=== PATIENT | male | born 1980 | race Caucasian/White ===

== ENCOUNTER 2017-08-14 19:49 | Emergency (ER) | payer OTHER ==
[2017-08-14] MEDS ORDERED: Acetaminophen TAB* 325 MG PO ONE (22:57)
[2017-08-14] MEDS ORDERED: Metoclopramide IV* 5 MG/ML 2 ML VIAL IV SLOW PU ONE (22:57)
[2017-08-14] MEDS: NS 0.9% 1000 ML* 2,000 ML IV ONE (23:06)
[2017-08-14 23:15] LABS: ABS Basophils 0.1 10^3/ul (0-0.2); ABS Eosinophils 0 10^3/ul (0-0.6); ABS Lymphocytes 0.4 10^3/ul (1.0-4.8); ABS Monocytes 0.4 10^3/ul (0-0.8); ABS Neutrophils 6.6 10^3/ul (1.5-7.7); ABS Nucleated RBC 0 10^3/ul; Eosinophil % 0.3 % (0-6); Hematocrit 45 % (42-52); Hemoglobin 15.9 g/dl (14.0-18.0); Lymphocyte % 5.2 % (25-47); Mean Corpuscular HGB Conc 35 g/dl (31-36); Mean Corpuscular Hemoglobin 31 pg (27-31); Mean Corpuscular Volume 88 fL (80-94); Mean Platelet Volume 7.6 um3 (7.4-10.4); Nucleated Red Blood Cells % 0.1; Platelet Count 246 10^3/ul (150-450); Red Blood Count 5.12 10^6/ul (4.0-5.4); Red Cell Distribution Width 14 % (10.5-15); White Blood Count 7.5 10^3/ul (3.5-10.8)
[2017-08-14 23:28] LABS: EGFR Non-African American 86.5 (>60)
[2017-08-15] MEDS: NS 0.9% 1000 ML* 2,000 ML IV ONE (00:14)
[2017-08-15 00:45] VITALS: BP 117/61
--- NOTE | 2017-08-15 01:04 | ED ---
Bennett Garza Stephanie, scribed for Mira Pandya MD on 08/14/17 at 2300 . Abdominal Pain/Male - HPI Summary HPI Summary: The pt is a 37 y/o M presenting to the ED with c/o abd pain that began this morning when she woke up. He describes his abd pain as cramping. Symptoms include N/V/D, chills, lightheadedness, CP, and numbness in his arms. He denies fever. The pt states last night he ate pizza from a gas station and is afraid he has food poisoning. The pt last vomited at 17:00. - History of Current Complaint Chief Complaint: EDNauseaVomitDiarrh Stated Complaint: CHEST/ABD PAIN Time Seen by Provider: 08/14/17 22:29 Hx Obtained From: Patient Onset/Duration: Sudden Onset, Lasting Hours, Still Present Timing: Constant Severity Currently: Mild Pain Intensity: 3 Pain Scale Used: 0-10 Numeric Location: Diffuse Radiates: No Character: Cramping Aggravating Factor(s): Nothing Alleviating Factor(s): Nothing Associated Signs And Symptoms: Positive: Nausea, Vomiting, Diarrhea. 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, History Other Infectious Disease Denies: Hx Clostridium Difficile, Hx Hepatitis, Hx Human Immunodeficiency Virus (HIV), Hx of Known/Suspected MRSA, Hx Tuberculosis, Hx Known/Suspected VRE , Traveled Outside the [place] in Last 30 Days - Family History Known Family History: Positive: Unknown - Reviewed and non-contributory - Social History Occupation: Employed Part-time Lives: With Family Alcohol Use: None Hx Substance Use: Yes Substance Use Type: Reports: Marijuana Substance Use Comment - Amount & Last Used: often past 15 yrs and last two days Hx Tobacco Use: Yes Smoking Status (MU): Former Smoker Review of Systems Positive: Chills. Negative: Fever Positive: Chest Pain Positive: Abdominal Pain, Vomiting, Diarrhea, Nausea Neurological: Other - lightheadedness Positive: Numbness - UE bilaterally All Other Systems Reviewed And Are Negative: Yes Physical Exam - Summary Physical Exam Summary: VITAL SIGNS: Reviewed. GENERAL: Patient is a well-developed and nourished MALE who is lying comfortable in the stretcher. Patient is not in any acute respiratory distress. HEAD AND FACE: No signs of trauma. No ecchymosis, hematomas or skull depressions. No sinus tenderness. EYES: PERRLA, EOMI x 2, No injected conjunctiva, no nystagmus. EARS: Hearing grossly intact. Ear canals and tympanic membranes are within normal limits. MOUTH: Oropharynx within normal limits. NECK: Supple, trachea is midline, no adenopathy, no JVD, no carotid bruit, no c- spine tenderness, neck with full ROM. CHEST: Symmetric, no tenderness at palpation LUNGS: Clear to auscultation bilaterally. No wheezing or crackles. CVS: Regular rate and rhythm, S1 and S2 present, no murmurs or gallops appreciated. ABDOMEN: Soft, non-tender. No signs of distention. No rebound no guarding, and no masses palpated. Hyperactive bowel sounds. EXTREMITIES: FROM in all major joints, no edema, no cyanosis or clubbing. NEURO: Alert and oriented x 3. No acute neurological deficits. Speech is normal and follows commands. SKIN: Dry and warm Triage Information Reviewed: Yes Vital Signs On Initial Exam: Initial Vitals Temp Pulse Resp BP Pulse Ox 100.3 F 103 18 119/75 98 08/14/17 19:56 08/14/17 19:56 08/14/17 19:56 08/14/17 19:56 08/14/17 19:56 Vital Signs Reviewed: Yes Diagnostics - Vital Signs Vital Signs Temp Pulse Resp BP Pulse Ox 08/14/17 22:49 94 98 08/14/17 22:12 99.5 F 98 16 114/72 98 08/14/17 19:56 100.3 F 103 18 119/75 98 - Laboratory Result Diagrams: 08/14/17 22:50 08/14/17 22:50 Lab Statement: Any lab studies that have been ordered have been reviewed, and results considered in the medical decision making process. Abdominal Pain Fem Course/Dx - Course Course Of Treatment: The pt is a 37 y/o M presenting to the ED with c/o abd pain that began this morning when she woke up. He describes his abd pain as cramping. Symptoms include N/V/D, chills, lightheadedness, CP, and numbness in his arms. He denies fever. The pt states last night he ate pizza from a gas station and is afraid he has food poisoning. The pt last vomited at 17:00. Labs are unremarkable. The pt's symptoms are likely due to gastroenteritis. The pt is discharged with reglan. - Diagnoses Provider Diagnoses: Gastroenteritis Discharge - Sign-Out/Discharge Documenting (check all that apply): Discharge - Discharge Plan Condition: Stable Disposition: HOME Prescriptions: Metoclopramide TAB* [Reglan TAB*] 10 mg PO Q6H PRN #14 tab PRN Reason: Nausea/Vomiting Patient Education Materials: Gastroenteritis (ED) Referrals: Yury Frausto MD [Primary Care Provider] - 2 Days Additional Instructions: RETURN TO EMERGENCY DEPARTMENT FOR ANY NEW OR WORSENING SYMPTOMS. The documentation as recorded by the Bennett gan Stephanie accurately reflects the service I personally performed and the decisions made by , Mira Pandya MD.
== END 2017-08-15 00:45 | disposition home or self-care (01) ==
LOC: ED 19:49
DX: K52.9 Noninfective gastroenteritis and colitis, unspecified (principal); R42 Dizziness and giddiness; R07.89 Other chest pain; R20.0 Anesthesia of skin; Z87.891 Personal history of nicotine dependence
CPT/HCPCS: 36415; 80053; 82150; 83690; 83735; 85025; 96374; 99284; A9270-GY; J2765

== ENCOUNTER 2019-08-27 18:04 | Emergency (ER) | payer OTHER ==
--- NOTE | 2019-08-27 18:28 | ED ---
Psychiatric Complaint - HPI Summary HPI Summary: 39-year-old male presents with suicidal ideation for the past couple months. He states the girlfriend is causing him to have increased stress. He states that she has been sleeping around and it is causing increase stress on relationship. He states he has a plan to drive a car into a tree. He does not see a therapist or on any medications. He has no medical conditions. He denies any drug or alcohol use. - History Of Current Complaint Chief Complaint: EDSuicidal Time Seen by Provider: 08/27/19 18:09 - Allergies/Home Medications Allergies/Adverse Reactions: Allergies Allergy/AdvReac Type Severity Reaction Status Date / Time No Known Allergies Allergy Verified 08/14/17 19:59 Home Medications: Home Medications NK [No Home Medications Reported] 08/27/19 [History Confirmed 08/27/19] PMH/Surg Hx/FS Hx/Imm Hx Endocrine/Hematology History: Denies: Hx Anticoagulant Therapy Respiratory History: Denies: Hx Asthma Sensory History: Denies: Hx Legally Blind, Hx Deafness Opthamlomology History: Denies: Hx Legally Blind - Surgical History Surgery Procedure, Year, and Place: bladder mesh; ankle reconstruction; intestinal surgery; abd hernia - Immunization History Date of Influenza Vaccine: has not received Infectious Disease History: No Infectious Disease History: Reports: Hx Shingles - age 16, 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, History Other Infectious Disease Denies: Hx Clostridium Difficile, Hx Hepatitis, Hx Human Immunodeficiency Virus (HIV), Hx of Known/Suspected MRSA, Hx Tuberculosis, Hx Known/Suspected VRE , Traveled Outside the [place] in Last 30 Days - Family History Known Family History: Positive: Unknown - Reviewed and non-contributory - Social History Alcohol Use: None Hx Substance Use: Yes Substance Use Type: Reports: Marijuana Substance Use Comment - Amount & Last Used: often past 15 yrs and last two days Hx Tobacco Use: Yes Smoking Status (MU): Former Smoker Review of Systems Negative: Fever Negative: Chest Pain Negative: Shortness Of Breath Positive: Depressed All Other Systems Reviewed And Are Negative: Yes Physical Exam Triage Information Reviewed: Yes Vital Signs On Initial Exam: Initial Vitals Temp Pulse Resp BP Pulse Ox 97.9 F 98 20 138/97 99 08/27/19 18:15 08/27/19 18:15 08/27/19 18:15 08/27/19 18:15 08/27/19 18:15 Vital Signs Reviewed: Yes Appearance: Positive: Well-Appearing Skin: Positive: Warm, Dry Head/Face: Positive: Normal Head/Face Inspection Eyes: Positive: Normal, Conjunctiva Clear ENT: Positive: Pharynx normal Respiratory/Lung Sounds: Positive: Clear to Auscultation, Breath Sounds Present Cardiovascular: Positive: Normal, RRR Musculoskeletal: Positive: Normal Neurological: Positive: Normal Psychiatric: Positive: Normal Procedures - Sedation Patient Received Moderate/Deep Sedation with Procedure: No Diagnostics - Vital Signs Vital Signs Temp Pulse Resp BP Pulse Ox 08/27/19 18:15 97.9 F 98 20 138/97 99 - Laboratory Result Diagrams: 08/27/19 18:09 08/27/19 18:09 Lab Statement: Any lab studies that have been ordered have been reviewed, and results considered in the medical decision making process. Re-Evaluation - Re-Evaluation First Eval Re-Evaluation Time: 07:57 Comment: Elton, mental health towing pilot, reports she received collateral from patient's brother, Fareed, and patient's friend, Luis Alberto. Course/Dx - Course Course Of Treatment: 39-year-old male presents with increasing depression for the past couple months. He states the girlfriend is causing him to have increased stress. He states that she has been sleeping around and it is causing increase stress on relationship. He states he has a plan to drive a car into a tree. He does not see a therapist or on any medications. He has no medical conditions. He denies any drug or alcohol use. On exam has normal physical exam. is medically clear for mental health. patient will be signed out to dr juárez will wait for collateral for disposition. - Differential Dx/Clinical Impression Differential Diagnosis/HQI/PQRI: Positive: Anxiety, Depression, Suicidal Ideation Provider Diagnosis: Adjustment disorder - Critical Care Time Critical Care Statement: Critical care time is provided exclusive of any time spent performing procedures. Discharge ED - Sign-Out/Discharge Documenting (check all that apply): Sign-Out Patient Signing out patient TO: Silvana Juárez - Discharge Plan Condition: Stable Disposition: HOME Referrals: Yury Frausto MD [Primary Care Provider] - - Billing Disposition and Condition Condition: STABLE Disposition: Home - Attestation Statements Provider Attestation: I was available for consultation for this patient. I did not evaluate the patient or participate in any medical decision making or disposition decisions unless I am specifically named in the chart as having consulted on the patient. If I have consulted on the patient, please see my own ED note on the patient encounter. Vicenta Bryan MD
[2019-08-27 18:52] LABS: ABS Eosinophils 0.1 10^3/ul (0-0.6); ABS Lymphocytes 1.7 10^3/ul (1.0-4.8); ABS Monocytes 0.7 10^3/ul (0-0.8); ABS Neutrophils 5.1 10^3/ul (1.5-7.7); Eosinophil % 1.8 %; Hematocrit 45 % (42-52); Hemoglobin 16.1 g/dL (14.0-18.0); Lymphocyte % 22.1 %; Mean Corpuscular HGB Conc 36 g/dL (31-36); Mean Corpuscular Hemoglobin 32 pg (27-31); Mean Corpuscular Volume 90 fL (80-94); Mean Platelet Volume 7.9 fL (7.4-10.4); Platelet Count 318 10^3/uL (150-450); Red Blood Count 5.01 10^6 /uL (4.18-5.48); Red Cell Distribution Width 14 % (10-15); White Blood Count 7.6 10^3/uL (3.5-10.8)
[2019-08-27 19:08] LABS: ALT 30 U/L (7-52); AST 23 U/L (13-39); Acetaminophen < 15 mcg/mL; Albumin 4.7 g/dL (3.2-5.2); Albumin/Globulin Ratio 1.6 (1-3); Alcohol < 10 mg/dL (<10); Alkaline Phosphatase 61 U/L (34-104); Anion Gap 8 mmol/L (2-11); BUN/Creatinine Ratio 12.8 (8-20); Blood Urea Nitrogen 14 mg/dL (6-24); CO2 Carbon Dioxide 27 mmol/L (22-32); Calcium 9.6 mg/dL (8.6-10.3); Chloride 103 mmol/L (101-111); EGFR African American 91.6 (>60); EGFR Non-African American 75.7 (>60); Globulin 2.9 g/dL (2-4); Glucose 120 mg/dL (70-100); Potassium 3.6 mmol/L (3.5-5.0); Salicylate < 2.50 mg/dL (<30); Sodium 138 mmol/L (135-145); Total Protein 7.6 g/dL (6.4-8.9)
[2019-08-27 19:21] LABS: TSH (Thyroid Stimulating Horm) 1.34 mcIU/mL (0.34-5.60)
[2019-08-27 21:40] LABS: Urine Appearance Clear; Urine Bilirubin Negative (Negative); Urine Blood Negative (Negative); Urine Color Yellow; Urine Glucose Negative (Negative); Urine Ketones Trace (Negative); Urine Nitrite Negative (Negative); Urine Protein Negative (Negative); Urine Specific Gravity 1.029 (1.010-1.030); Urine Urobilinogen Negative (Negative)
[2019-08-27 21:57] LABS: Urine Benzodiazepine Screen None Detected (None Detect); Urine Opiates Screen None Detected (None Detect)
--- NOTE | 2019-08-28 02:14 | ED ---
Progress - Progress Note Progress Note: Patient is received as a sign-out from GEORGE Gavin at approximately 0230 08/28/[address] Stephenson, the patient is a mental health hold pending collateral. No changes to the patient's status during ED shift, patient is signed-out to Dr. Persaud at 0700 08/28/19 pending collateral. Course/Dx - Diagnoses Provider Diagnoses: Mood disorder - Critical Care Time Critical Care Statement: Critical care time is provided exclusive of any time spent performing procedures. Discharge ED - Sign-Out/Discharge Documenting (check all that apply): Sign-Out Patient, Receiving Sign-Out Signing out patient TO: Teddy Persaud Receiving patient FROM: Yary Gavin - Discharge Plan Condition: Stable Referrals: Yury Frausto MD [Primary Care Provider] - - Billing Disposition and Condition Condition: STABLE - Attestation Statements Document Initiated by Scribe: Yes Documenting Scribe: DO TORRES Provider For Whom Scribe is Documenting (Include Credential): JOÃO JEAN MD Scribe Attestation: DO Garza, scribed for JOÃO JEAN MD on 08/28/19 at 0655. Scribe Documentation Reviewed: Yes Provider Attestation: The documentation as recorded by the DO gan accurately reflects the service I personally performed and the decisions made by me, JOÃO JEAN MD Status of Scribe Document: Viewed
--- NOTE | 2019-08-28 07:10 | ED ---
Progress - Progress Note Progress Note: Patient is received as a sign-out from Dr. Juárez at shift change at 0700 on awaiting collateral information and pending disposition of this mental health patient. Re-Evaluation - Re-Evaluation First Eval Re-Evaluation Time: 07:57 Comment: Elton, mental health psychologist personnel, reports she received collateral from patient's brother, Fareed, and patient's friend, Luis Alberto. Course/Dx - Course Course Of Treatment: This patient was signed out by Dr. Juárez pending collateral and disposition. Elton, mental health psychologist personnel, reports she received collateral information from patient's brother and friend and vouched for patient's safety if discharged. Patient will be discharged home with outpatient information. His case was reviewed by Dr. Stephenson, psychiatrist. Dx: Adjustment disorder. - Diagnoses Provider Diagnoses: Adjustment disorder - Critical Care Time Critical Care Statement: Critical care time is provided exclusive of any time spent performing procedures. Discharge ED - Sign-Out/Discharge Documenting (check all that apply): Patient Departure - Discharge home, Receiving Sign-Out Receiving patient FROM: Silvana Juárez - Discharge Plan Condition: Stable Disposition: HOME Referrals: Yury Frausto MD [Primary Care Provider] - - Billing Disposition and Condition Condition: STABLE Disposition: Home - Attestation Statements Document Initiated by Sheyla: Yes Documenting Scribe: Ariana Giraldo Provider For Whom Sheyla is Documenting (Include Credential): Teddy Persaud MD Scribe Attestation: Ariana Garza, scribed for Teddy Persaud MD on 08/30/19 at 0707. Scribe Documentation Reviewed: Yes Provider Attestation: The documentation as recorded by the Ariana gan accurately reflects the service I personally performed and the decisions made by me, Teddy Persaud MD Status of Scribe Document: Viewed
[2019-08-28 07:45] VITALS: BP 131/81
== END 2019-08-28 08:05 | disposition home or self-care (01) ==
LOC: ED 18:04
DX: F43.20 Adjustment disorder, unspecified (principal); R45.851 Suicidal ideations; Z86.14 Personal history of Methicillin resistant Staphylococcus aureus infection; Z87.891 Personal history of nicotine dependence
CPT/HCPCS: 36415; 80053; 80307; 80320; 80329; 81003; 84443; 85025; 99285; G0480